=== PATIENT | male | born 1990 | race Two or more races ===

== ENCOUNTER 2020-03-12 23:57 | Emergency (ER) | payer OTHER ==
[~2020-03-12] VITALS: Ht 182.9 cm; Wt 163.6 kg
[2020-03-13] MEDS ORDERED: PERTUSS(ACELL),DIPH,TET VAC/PF 0.5 ML VIAL IM ONE (00:45)
[2020-03-13 02:20] VITALS: BP 116/62
== END 2020-03-13 02:25 | disposition home or self-care (01) ==
LOC: EMS 23:58
DX: S61.432A Puncture wound without foreign body of left hand, initial encounter (principal); F17.210 Nicotine dependence, cigarettes, uncomplicated; F12.90 Cannabis use, unspecified, uncomplicated; W45.8XXA Other foreign body or object entering through skin, initial encounter; Y93.89 Activity, other specified; Y92.89 Other specified places as the place of occurrence of the external cause; Y99.8 Other external cause status